=== PATIENT | male | born 1975 | race Caucasian/White ===

== ENCOUNTER 2020-04-03 07:32 | Emergency (ER) | payer OTHER ==
[~2020-04-03] VITALS: Ht 172.7 cm; Wt 127.0 kg
[~2020-04-03 07:32] MED LIST: ALBUTEROL SULF8.5 GM INH; DIPHENHYDRAMINE25 MG PO; DULERA 100 MCG/13 GM INH; MONTELUKAST SOD10 MG PO; NASACORT10.8 ML NAS; NORCO 5-325 TA1 EACH PO; ZOFRAN ODT4 MG PO
[2020-04-03] MEDS ORDERED: PRILOSEC OTC20 MG PO (08:06)
== END 2020-04-05 13:45 | disposition home or self-care (01) ==
LOC: ED 07:32
DX: S62.336A Displaced fracture of neck of fifth metacarpal bone, right hand, initial encounter for closed fracture (principal); F10.129 Alcohol abuse with intoxication, unspecified; Y90.8 Blood alcohol level of 240 mg/100 ml or more; R45.851 Suicidal ideations; Z20.822 Contact with and (suspected) exposure to COVID-19; W22.8XXA Striking against or struck by other objects, initial encounter; K21.9 Gastro-esophageal reflux disease without esophagitis; J44.9 Chronic obstructive pulmonary disease, unspecified; F17.200 Nicotine dependence, unspecified, uncomplicated; Z79.899 Other long term (current) drug therapy
CPT/HCPCS: 73130; 80053; 80176; 81001; 84443; 85025; 99285-25; C9803; U0003

== ENCOUNTER 2021-06-08 20:13 | Emergency (ER) | payer OTHER ==
[~2021-06-08] VITALS: Ht 172.7 cm; Wt 127.0 kg
[~2021-06-08 20:13] MED LIST changes: +PRILOSEC OTC20 MG PO
--- OUTSIDE RECORDS SUMMARY | 2021-06-08 20:16 | XMS ---
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 EMadiha VISIT COUNT (12 MO.) 1 [facility] [place] TOTAL 1 NOTE: Visits indicate total known visits. ED/UCC VISIT TRACKING (12 MO.) 06/08/2021 20:14 [facility] [place] TYPE: Emergency COMPLAINT: - RT RIB INJURY INPATIENT VISIT TRACKING (12 MO.) No inpatient visits to display in this time frame [email or web address]
[2021-06-09] MEDS ORDERED: HYDROCODON-ACE1 EA10 PO (01:37)
== END 2021-06-09 01:50 | disposition home or self-care (01) ==
LOC: ED 20:13
DX: S20.211A Contusion of right front wall of thorax, initial encounter (principal); K21.9 Gastro-esophageal reflux disease without esophagitis; J44.9 Chronic obstructive pulmonary disease, unspecified; F17.200 Nicotine dependence, unspecified, uncomplicated; Z88.5 Allergy status to narcotic agent; Z79.899 Other long term (current) drug therapy; W01.0XXA Fall on same level from slipping, tripping and stumbling without subsequent striking against object, initial encounter
CPT/HCPCS: 71046; 99283-25

== ENCOUNTER 2021-12-25 14:01 | Emergency (ER) | payer OTHER ==
[~2021-12-25] VITALS: Ht 172.7 cm; Wt 123.0 kg
[~2021-12-25 14:01] MED LIST changes: +HYDROCODON-ACE1 EA10 PO
--- OUTSIDE RECORDS SUMMARY | 2021-12-25 14:02 | XMS ---
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 EMadiha VISIT COUNT (12 MO.) 3 [facility] [place] TOTAL 3 NOTE: Visits indicate total known visits. ED/UCC VISIT TRACKING (12 MO.) 12/25/2021 14:01 [facility] TYPE: Emergency COMPLAINT: - RIB PAIN,SKIN PROBLEM 11/04/2021 16:46 [facility] TYPE: Emergency COMPLAINT: - MEDICAL CLEARANCE DIAGNOSES: - Chronic obstructive pulmonary disease, unspecified - Other intermediate designer (current) drug therapy - Poisoning by electrolytic, caloric and water-balance agents, intentional self-harm, initial encounter - Gastro-esophageal reflux disease without esophagitis - Contact with and (suspected) exposure to COVID-19 - Allergy status to narcotic agent 06/08/2021 20:14 [facility] TYPE: Emergency COMPLAINT: - RT RIB INJURY DIAGNOSES: - Chronic obstructive pulmonary disease, unspecified - Other jail (current) drug therapy - Pleurodynia - Gastro-esophageal reflux disease without esophagitis - Allergy status to narcotic agent - Nicotine dependence, unspecified, uncomplicated - Contusion of right front wall of thorax, initial encounter - Fall on same level from slipping, tripping and stumbling without subsequent striking against object, initial encounter INPATIENT VISIT TRACKING (12 MO.) No inpatient visits to display in this time frame [email or web address]
[2021-12-25] MEDS ORDERED: FLUTICASONE-SA1 EAC3 INH (14:19)
--- NOTE | 2021-12-26 13:11 | EKG ---
[facility] [address] [facility] [place] [address] Signed Sinus tachycardia Left axis deviation Inferior infarct , age undetermined Abnormal ECG When compared with ECG of 04-NOV-2021 16:57, No significant change was found Confirmed by ROSA ELENA JACKSON MD ([id number]) on 12/26/2021 1:11:09 PM Electronically Signed By: ROSA ELENA JACKSON MD 12/26/21 1311 PATIENT NAME: HAN MIX Electrocardiogram DATE OF : 73 PHYSICIAN: ROSA ELENA JACKSON MD REPORT #: [id number] REPORT IS CONFIDENTIAL AND NOT TO BE RELEASED WITHOUT AUTHORIZATION
== END 2021-12-25 17:25 | disposition home or self-care (01) ==
LOC: ED 14:01
DX: R61 Generalized hyperhidrosis (principal); R23.2 Flushing; K21.9 Gastro-esophageal reflux disease without esophagitis; J44.9 Chronic obstructive pulmonary disease, unspecified; F43.10 Post-traumatic stress disorder, unspecified; F17.200 Nicotine dependence, unspecified, uncomplicated; Z88.5 Allergy status to narcotic agent; Z79.899 Other long term (current) drug therapy
CPT/HCPCS: 36415; 71045; 80053; 81001; 83690; 83735; 85025; 93005; 93010; 99284-25; J7030

== ENCOUNTER 2022-11-15 15:50 | Emergency (ER) | payer OTHER ==
[~2022-11-15] VITALS: Ht 172.7 cm; Wt 126.8 kg
--- OUTSIDE RECORDS SUMMARY | ~2022-11-15 | XMS | Continuity of Care Document ---
Demographics + + + | Address | [address] | | | [place] [address] | + + + | Preferred Language | Unknown | + + + | Marital Status | Never | + + + | Voodoo Affiliation | Unknown | + + + | Race | White | + + + | Ethnic Group | Not or | + + + Author + + + | Author | [place] | + + + | Organization | [place] | + + + | Address | [address] | | | [place] [address] | + + + | Phone | | + + + Care Team Providers + + + + | Care Drum Operator Name | Role | Phone | + + + + Unavailable | Unavailable | + + + + Unavailable | Unavailable | + + + + Unavailable | Unavailable | + + + + Unavailable | Unavailable | + + + + Allergies and Intolerances + + + + + + | date | description | facility | reaction | severity | + + + + + + | (no date) | Sulfa | [facility] | (no reaction) | (no severity) | | | Antibiotics | [facility] | | | + + + + + + | (no date) | Asthma | [facility] | (no reaction) | (no severity) | | | | | | | | | | Hospital | | | + + + + + + | (no date) | Asthma / | [facility] | (no reaction) | (no severity) | | | Allergic asthma | [facility] | | | | | | | | | + + + + + + | (no date) | Asthma | [facility] | (no reaction) | (no severity) | | | | [facility] | | | + + + + + + | (no date) | Sulfa | [facility] | (no reaction) | (no severity) | | | Antibiotics | [facility] | | | + + + + + + Encounters No information. Functional Status No information. Immunizations No information. Medications + + + + | date | description | facility | + + + + | 2021-09-18 00:00 | DIPHENHYDRAMINE HCL | [facility] | + + + + | 2021-11-04 00:00 | DIPHENHYDRAMINE HCL | [facility] | + + + + | 2021-12-25 00:00 | DIPHENHYDRAMINE HCL | [facility] | + + + + | 2022-08-16 00:00 | DIPHENHYDRAMINE HCL | [facility] | + + + + | 2022-08-17 00:00 | DIPHENHYDRAMINE HCL | [facility] | + + + + | 2021-07-12 00:00 | divalproex sodium 125 MG | [facility] | | | Delayed Release Oral Tablet | | | | | | + + + + | 2021-09-18 00:00 | MOMETASONE/FORMOTEROL | [facility] | + + + + | 2021-11-04 00:00 | MOMETASONE/FORMOTEROL | [facility] | + + + + | 2021-12-25 00:00 | MOMETASONE/FORMOTEROL | [facility] | + + + + | 2022-08-16 00:00 | MOMETASONE/FORMOTEROL | [facility] | + + + + | 2022-08-17 00:00 | MOMETASONE/FORMOTEROL | [facility] | + + + + | 2021-07-12 00:00 | Fluticasone Furoate 27.5 | [facility] | | | MCG/SPRAY Nasal Suspension | | + + + + | 2021-12-25 00:00 | Fluticasone | [facility] | | | Propion/Salmeterol | | + + + + | 2022-08-16 00:00 | Fluticasone | [facility] | | | Propion/Salmeterol | | + + + + | 2022-08-17 00:00 | Fluticasone | [facility] | | | Propion/Salmeterol | | + + + + | 2021-09-18 00:00 | ALBUTEROL SULFATE | [facility] | + + + + | 2021-11-04 00:00 | ALBUTEROL SULFATE | [facility] | + + + + | 2021-12-25 00:00 | ALBUTEROL SULFATE | [facility] | + + + + | 2022-08-16 00:00 | ALBUTEROL SULFATE | [facility] | + + + + | 2022-08-17 00:00 | ALBUTEROL SULFATE | [facility] | + + + + | 2021-07-12 00:00 | montelukast 10 MG Oral | [facility] | | | Tablet [Singulair] | | + + + + | 2021-07-12 00:00 | Propranolol HCl 20 MG Oral | [facility] | | | Tablet | | + + + + | 2021-08-11 00:00 | Propranolol HCl 20 MG Oral | [facility] | | | Tablet | | + + + + | 2021-07-12 00:00 | fluticasone furoate 0.0275 | [facility] | | | MG/ACTUAT Metered Dose | | | | Nasal [place] | | + + + + | 2021-09-18 00:00 | TRIAMCINOLONE ACETONIDE | [facility] | + + + + | 2021-11-04 00:00 | TRIAMCINOLONE ACETONIDE | [facility] | + + + + | 2021-12-25 00:00 | TRIAMCINOLONE ACETONIDE | [facility] | + + + + | 2022-08-16 00:00 | TRIAMCINOLONE ACETONIDE | [facility] | + + + + | 2022-08-17 00:00 | TRIAMCINOLONE ACETONIDE | [facility] | + + + + | 2022-06-13 00:00 | alprazolam 1 MG Oral | [facility] | | | Tablet | | + + + + | 2021-09-18 00:00 | MONTELUKAST SODIUM | [facility] | + + + + | 2021-11-04 00:00 | MONTELUKAST SODIUM | [facility] | + + + + | 2021-12-25 00:00 | MONTELUKAST SODIUM | [facility] | + + + + | 2022-08-16 00:00 | MONTELUKAST SODIUM | [facility] | + + + + | 2022-08-17 00:00 | MONTELUKAST SODIUM | [facility] | + + + + | 2021-07-12 00:00 | Advair Diskus 100-50 | [facility] | | | MCG/ACT Inhalation Aerosol | | | | Powder Breath Activated | | + + + + | 2021-07-12 00:00 | busPIRone HCl 5 MG Oral | [facility] | | | Tablet | | + + + + | 2021-09-18 00:00 | OMEPRAZOLE MAGNESIUM | [facility] | + + + + | 2021-11-04 00:00 | OMEPRAZOLE MAGNESIUM | [facility] | + + + + | 2021-12-25 00:00 | OMEPRAZOLE MAGNESIUM | [facility] | + + + + | 2022-08-16 00:00 | OMEPRAZOLE MAGNESIUM | [facility] | + + + + | 2022-08-17 00:00 | OMEPRAZOLE MAGNESIUM | [facility] | + + + + | 2021-07-12 00:00 | Singulair 10 MG Oral | [facility] | | | Tablet | | + + + + | 2021-07-12 00:00 | Divalproex Sodium 125 MG | [facility] | | | Oral Tablet Delayed Release | | | | | | + + + + | 2022-08-16 00:00 | | [facility] | | | SULFAMETHOXAZOLE/TRIMETHOPR | | | | IM DS | | + + + + | 2022-08-16 00:00 | | [facility] | | | SULFAMETHOXAZOLE/TRIMETHOPR | | | | IM DS | | + + + + | 2021-07-12 00:00 | propranolol hydrochloride | [facility] | | | 20 MG Oral Tablet | | + + + + | 2021-08-11 00:00 | propranolol hydrochloride | [facility] | | | 20 MG Oral Tablet | | + + + + | 2021-06-09 00:00 | HYDROCODONE | [facility] | | | BIT/ACETAMINOPHEN | | + + + + | 2021-06-09 00:00 | HYDROCODONE | [facility] | | | BIT/ACETAMINOPHEN | | + + + + | 2014-05-30 00:00 | HYDROCODONE | [facility] | | | BIT/ACETAMINOPHEN | | + + + + | 2014-05-30 00:00 | HYDROCODONE | [facility] | | | BIT/ACETAMINOPHEN | | + + + + | 2014-05-30 00:00 | HYDROCODONE | [facility] | | | BIT/ACETAMINOPHEN | | + + + + | 2022-08-17 00:00 | HYDROCODONE | [facility] | | | BIT/ACETAMINOPHEN | | + + + + | 2021-07-12 00:00 | [facility]pirone hydrochloride 5 | [facility] | | | MG Oral Tablet | | + + + + | 2014-05-30 00:00 | ONDANSETRON | [facility] | + + + + | 2014-05-30 00:00 | ONDANSETRON | [facility] | + + + + | 2014-05-30 00:00 | ONDANSETRON | [facility] | + + + + | 2021-07-12 00:00 | 60 ACTUAT fluticasone | [facility] | | | propionate 0.1 MG/ACTUAT / | | | | salmeterol 0.05 MG/ACTUAT | | | | Dry Powder Inhaler [Advair] | | + + + + | 2022-06-13 00:00 | ALPRAZolam 1 MG Oral | [facility] | | | Tablet | | + + + + | 2021-07-12 00:00 | Omeprazole Oral Tablet | [facility] | | | | | + + + + | 2021-07-12 00:00 | Albuterol 90 mcg | [facility] | | | Inhalation Inhaler | | + + + + Problems + + + + | date | description | facility | + + + + | 2014-05-30 00:00 | Dehydration | [facility] | + + + + | 2014-05-30 00:00 | Dehydration | [facility] | + + + + | 2014-05-30 00:00 | Dehydration | [facility] | + + + + | 2014-05-30 00:00 | Vomiting and diarrhea | [facility] | + + + + | 2014-05-30 00:00 | Vomiting and diarrhea | [facility] | + + + + | 2014-05-30 00:00 | Vomiting and diarrhea | [facility] | + + + + | 2014-05-30 00:00 | Weakness | [facility] | + + + + | 2014-05-30 00:00 | Weakness | [facility] | + + + + | 2014-05-30 00:00 | Weakness | [facility] | + + + + | 2016-05-28 00:00 | Patient left without being | [facility] | | | seen | | + + + + | 2016-05-28 00:00 | Patient left without being | [facility] | | | seen | | + + + + | 2016-05-28 00:00 | Patient left without being | [facility] | | | seen | | + + + + | 2020-04-03 00:00 | Alcoholic intoxication | [facility] | + + + + | 2020-04-03 00:00 | Alcoholic intoxication | [facility] | + + + + | 2020-04-03 00:00 | Alcoholic intoxication | [facility] | + + + + | 2020-04-03 00:00 | Suicidal ideation | [facility] | + + + + | 2020-04-03 00:00 | Suicidal ideation | [facility] | + + + + | 2020-04-03 00:00 | Suicidal ideation | [facility] | + + + + | 2021-06-09 00:00 | Contusion of right chest | [facility] | | | wall | | + + + + | 2021-06-09 00:00 | Contusion of right chest | [facility] | | | wall | | + + + + | 2021-06-09 00:00 | Contusion of right chest | [facility] | | | wall | | + + + + | 2021-11-04 00:00 | Intentional overdose | [facility] | + + + + | 2021-11-04 00:00 | Intentional overdose | [facility] | + + + + | 2021-12-25 00:00 | Flushing | [facility] | + + + + | 2021-12-25 00:00 | Flushing | [facility] | + + + + | 2021-12-25 00:00 | Excessive sweating | [facility] | + + + + | 2021-12-25 00:00 | Excessive sweating | [facility] | + + + + | 2022-08-16 00:00 | Abscess of left thigh | [facility] | + + + + | 2022-08-16 00:00 | Abscess of left thigh | [facility] | + + + + | 2022-08-16 14:43 | NICOTINE DEPENDENCE, | [facility] | | | CIGARETTES, UNCOMPLICATED | | + + + + | 2022-08-16 14:43 | CHRONIC OBSTRUCTIVE | [facility] | | | PULMONARY DISEASE, | | | | UNSPECIFIED | | + + + + | 2022-08-16 14:43 | GASTRO-ESOPHAGEAL REFLUX | [facility] | | | DISEASE WITHOUT ESOPHAGIT | | + + + + | 2022-08-16 14:43 | CUTANEOUS ABSCESS OF LEFT | [facility] | | | LOWER LIMB | | + + + + | 2022-08-16 14:43 | OTHER ANTISQUEAK APPLIER (CURRENT) | [facility] | | | DRUG THERAPY | | + + + + | 2022-08-17 00:00 | Abscess of thigh | [facility] | + + + + | 2022-08-17 13:08 | NICOTINE DEPENDENCE, | [facility] | | | UNSPECIFIED, UNCOMPLICATED | | + + + + | 2022-08-17 13:08 | CHRONIC OBSTRUCTIVE | [facility] | | | PULMONARY DISEASE, | | | | UNSPECIFIED | | + + + + | 2022-08-17 13:08 | GASTRO-ESOPHAGEAL REFLUX | [facility] | | | DISEASE WITHOUT ESOPHAGIT | | + + + + | 2022-08-17 13:08 | CUTANEOUS ABSCESS OF LEFT | [facility] | | | LOWER LIMB | | + + + + | 2022-08-17 13:08 | CUTANEOUS ABSCESS, | [facility] | | | UNSPECIFIED | | + + + + | 2022-08-17 13:08 | OTHER ALF (CURRENT) | [facility] | | | DRUG THERAPY | | + + + + | 2022-08-17 13:08 | ALLERGY STATUS TO NARCOTIC | [facility] | | | AGENT STATUS | | + + + + Procedures + + + + | date | description | facility | + + + + | 2021-07-12 00:00 | Controlling BP; Most | [facility] | | | recent Systolic BP | | | | 130-139mm Hg | | + + + + | 2021-07-12 00:00 | Controlling BP; Most | [facility] | | | recent Diastolic BP btwn | | | | 80-89 mm Hg | | + + + + | 2021-07-12 00:00 | Patient-Focused Health | [facility] | | | Risk Assessment; Admin and | | | | Interp | | + + + + | 2021-07-12 00:00 | Annual Depression | [facility] | | | Screening; 15 Minutes | | + + + + Results/Labs +--------+--------+ +---------+--------+---------+ | test | date | facility | value | unit | notes | +--------+--------+ +---------+--------+---------+ + + | Result panel 1 | + + + + + + + + + | No Results | (no date) | [facility] | No Results | (missing) | (missing) | | | | [facility] | | | | | | | [facility] | | | | + + + + + + + + + | Result panel 2 | + + + + + + + + + | | 2021-05-25 | [facility] | NEGATIVE | (missing) | (missing) | | (unavailable | 08:10 | | | | | | ) | | Hospital | | | | + + + + + + + + + | Result panel 3 | + + + + + + + + + | | 2021-11-04 | [facility] | YELLOW | (missing) | (missing) | | (unavailable | 16:56 | | | | | | ) | | Hospital | | | | + + + + + + + + + | Result panel 4 | + + + + + +---------+ + + | | 2021-11-04 | [facility] | CLEAR | (missing) | (missing) | | (unavailable | 16:56 | | | | | | ) | | Hospital | | | | + + + +---------+ + + + + | Result panel 5 | + + + + + + + + + | | 2021-11-04 | [facility] | NEGATIVE | (missing) | (missing) | | (unavailable | 16:56 | | | | | | ) | | Hospital | | | | + + + + + + + + + | Result panel 6 | + + + + + + + + + | | 2021-11-04 | [facility] | NEGATIVE | (missing) | (missing) | | (unavailable | 16:56 | | | | | | ) | | Hospital | | | | + + + + + + + + + | Result panel 7 | + + + + + + + + + | | 2021-11-04 | [facility] | NEGATIVE | (missing) | (missing) | | (unavailable | 16:56 | | | | | | ) | | Hospital | | | | + + + + + + + + + | Result panel 8 | + + + + + +---------+ + + | | 2021-11-04 | [facility] | 1.025 | (missing) | (missing) | | (unavailable | 16:56 | | | | | | ) | | Hospital | | | | + + + +---------+ + + + + | Result panel 9 | + + + + + + + + + | | 2021-11-04 | [facility] | TRACE-I | (missing) | (missing) | | (unavailable | 16:56 | | | | | | ) | | Hospital | | | | + + + + + + + + + | Result panel 10 | + + + + + +-------+ + + | | 2021-11-04 | [facility] | 6.0 | (missing) | (missing) | | (unavailable | 16:56 | | | | | | ) | | Hospital | | | | + + + +-------+ + + + + | Result panel 11 | + + + + + + + + + | | 2021-11-04 | [facility] | NEGATIVE | (missing) | (missing) | | (unavailable | 16:56 | | | | | | ) | | Hospital | | | | + + + + + + + + + | Result panel 12 | + + + + + + + + + | | 2021-11-04 | [facility] | NORMAL | (missing) | (missing) | | (unavailable | 16:56 | | | | | | ) | | Hospital | | | | + + + + + + + + + | Result panel 13 | + + + + + + + + + | | 2021-11-04 | [facility] | NEGATIVE | (missing) | (missing) | | (unavailable | 16:56 | | | | | | ) | | Hospital | | | | + + + + + + + + + | Result panel 14 | + + + + + + + + + | | 2021-11-04 | [facility] | NEGATIVE | (missing) | (missing) | | (unavailable | 16:56 | | | | | | ) | | Hospital | | | | + + + + + + + + + | Result panel 15 | + + + + + +-------+ + + | | 2021-11-04 | [facility] | 2-3 | (missing) | (missing) | | (unavailable | 16:56 | | | | | | ) | | Hospital | | | | + + + +-------+ + + + + | Result panel 16 | + + + + + +-------+ + + | | 2021-11-04 | [facility] | 0-1 | (missing) | (missing) | | (unavailable | 16:56 | | | | | | ) | | Hospital | | | | + + + +-------+ + + + + | Result panel 17 | + + + + + +-----+ + + | | 2021-11-04 | [facility] | 0 | (missing) | (missing) | | (unavailable | 16:56 | | | | | | ) | | Hospital | | | | + + + +-----+ + + + + | Result panel 18 | + + + + + + + + + | | 2021-11-04 | [facility] | NONE SEEN | (missing) | (missing) | | (unavailable | 16:56 | | | | | | ) | | Hospital | | | | + + + + + + + + + | Result panel 19 | + + + + + + + + + | | 2021-11-04 | [facility] | NONE SEEN | (missing) | (missing) | | (unavailable | 16:56 | | | | | | ) | | Hospital | | | | + + + + + + + + + | Result panel 20 | + + + + + + + + + | | 2021-11-04 | [facility] | NONE SEEN | (missing) | (missing) | | (unavailable | 16:56 | | | | | | ) | | Hospital | | | | + + + + + + + + + | Result panel 21 | + + + + + + + + + | | 2021-11-04 | [facility] | CLEAN CATCH | (missing) | (missing) | | (unavailable | 16:56 | | | | | | ) | | Hospital | | | | + + + + + + + + + | Result panel 22 | + + + + + + + + + | | 2021-11-04 | [facility] | POSITIVE | (missing) | (missing) | | (unavailable | 16:56 | | | | | | ) | | Hospital | | | | + + + + + + + + + | Result panel 23 | + + + + + + + + + | | 2021-11-04 | [facility] | NEGATIVE | (missing) | (missing) | | (unavailable | 16:56 | | | | | | ) | | Hospital | | | | + + + + + + + + + | Result panel 24 | + + + + + + + + + | | 2021-11-04 | [facility] | NEGATIVE | (missing) | (missing) | | (unavailable | 16:56 | | | | | | ) | | Hospital | | | | + + + + + + + + + | Result panel 25 | + + + + + + + + + | | 2021-11-04 | [facility] | NEGATIVE | (missing) | (missing) | | (unavailable | 16:56 | | | | | | ) | | Hospital | | | | + + + + + + + + + | Result panel 26 | + + + + + + + + + | | 2021-11-04 | [facility] | NEGATIVE | (missing) | (missing) | | (unavailable | 16:56 | | | | | | ) | | Hospital | | | | + + + + + + + + + | Result panel 27 | + + + + + + + + + | | 2021-11-04 | [facility] | NEGATIVE | (missing) | (missing) | | (unavailable | 16:56 | | | | | | ) | | Hospital | | | | + + + + + + + + + | Result panel 28 | + + + + + + + + + | | 2021-11-04 | [facility] | NEGATIVE | (missing) | (missing) | | (unavailable | 16:56 | | | | | | ) | | Hospital | | | | + + + + + + + + + | Result panel 29 | + + + + + + + + + | | 2021-11-04 | [facility] | NEGATIVE | (missing) | (missing) | | (unavailable | 16:56 | | | | | | ) | | Hospital | | | | + + + + + + + + + | Result panel 30 | + + + + + + + + + | | 2021-11-04 | [facility] | NEGATIVE | (missing) | (missing) | | (unavailable | 16:56 | | | | | | ) | | Hospital | | | | + + + + + + + + + | Result panel 31 | + + + + + + + + + | | 2021-11-04 | [facility] | NEGATIVE | (missing) | (missing) | | (unavailable | 16:56 | | | | | | ) | | Hospital | | | | + + + + + + + + + | Result panel 32 | + + + + + + + + + | | 2021-11-04 | [facility] | NEGATIVE | (missing) | (missing) | | (unavailable | 16:56 | | | | | | ) | | Hospital | | | | + + + + + + + + + | Result panel 33 | + + + + + + + + + | | 2021-11-04 | [facility] | NEGATIVE | (missing) | (missing) | | (unavailable | 16:56 | | | | | | ) | | Hospital | | | | + + + + + + + + + | Result panel 34 | + + + + + + + + + | | 2021-11-04 | [facility] | NEGATIVE | (missing) | (missing) | | (unavailable | 16:56 | | | | | | ) | | Hospital | | | | + + + + + + + + + | Result panel 35 | + + + + + +--------+ + + | | 2021-11-04 | [facility] | 15.0 | (missing) | (missing) | | (unavailable | 17:05 | | | | | | ) | | Hospital | | | | + + + +--------+ + + + + | Result panel 36 | + + + + + +-------+ + + | | 2021-11-04 | [facility] | 308 | (missing) | (missing) | | (unavailable | 17:05 | | | | | | ) | | Hospital | | | | + + + +-------+ + + + + | Result panel 37 | + + + + + +--------+ + + | | 2021-11-04 | [facility] | 62.4 | (missing) | (missing) | | (unavailable | 17:05 | | | | | | ) | | Hospital | | | | + + + +--------+ + + + + | Result panel 38 | + + + + + +--------+ + + | | 2021-11-04 | [facility] | 27.4 | (missing) | (missing) | | (unavailable | 17:05 | | | | | | ) | | Hospital | | | | + + + +--------+ + + + + | Result panel 39 | + + + + + +-------+ + + | | 2021-11-04 | [facility] | 8.0 | (missing) | (missing) | | (unavailable | 17:05 | | | | | | ) | | Hospital | | | | + + + +-------+ + + + + | Result panel 40 | + + + + + +-------+ + + | | 2021-11-04 | [facility] | 1.3 | (missing) | (missing) | | (unavailable | 17:05 | | | | | | ) | | Hospital | | | | + + + +-------+ + + + + | Result panel 41 | + + + + + +-------+ + + | | 2021-11-04 | [facility] | 0.9 | (missing) | (missing) | | (unavailable | 17:05 | | | | | | ) | | Hospital | | | | + + + +-------+ + + + + | Result panel 42 | + + + + + +--------+ + + | | 2021-11-04 | [facility] | 12.5 | (missing) | (missing) | | (unavailable | 17:05 | | | | | | ) | | Hospital | | | | + + + +--------+ + + + + | Result panel 43 | + + + + + +------+---------+ + | | 2021-11-04 | [facility] | 94 | mg/dL | (missing) | | (unavailable | 17:05 | | | | | | ) | | Hospital | | | | + + + +------+---------+ + + + | Result panel 44 | + + + + + +------+---------+ + | | 2021-11-04 | [facility] | 13 | mg/dL | (missing) | | (unavailable | 17:05 | | | | | | ) | | Hospital | | | | + + + +------+---------+ + + + | Result panel 45 | + + + + + +--------+---------+ + | | 2021-11-04 | [facility] | 1.03 | mg/dL | (missing) | | (unavailable | 17:05 | | | | | | ) | | Hospital | | | | + + + +--------+---------+ + + + | Result panel 46 | + + + + + +------+ + + | | 2021-11-04 | [facility] | 90 | (missing) | (missing) | | (unavailable | 17:05 | | | | | | ) | | Hospital | | | | + + + +------+ + + + + | Result panel 47 | + + + + + +--------+ + + | | 2021-11-04 | [facility] | 5.38 | (missing) | (missing) | | (unavailable | 17:05 | | | | | | ) | | Hospital | | | | + + + +--------+ + + + + | Result panel 48 | + + + + + +---------+ + + | | 2021-11-04 | [facility] | 12.62 | (missing) | (missing) | | (unavailable | 17:05 | | | | | | ) | | Hospital | | | | + + + +---------+ + + + + | Result panel 49 | + + + + + +-------+ + + | | 2021-11-04 | [facility] | 139 | (missing) | (missing) | | (unavailable | 17:05 | | | | | | ) | | Hospital | | | | + + + +-------+ + + + + | Result panel 50 | + + + + + +-------+ + + | | 2021-11-04 | [facility] | 3.9 | (missing) | (missing) | | (unavailable | 17:05 | | | | | | ) | | Hospital | | | | + + + +-------+ + + + + | Result panel 51 | + + + + + +-------+ + + | | 2021-11-04 | [facility] | 104 | (missing) | (missing) | | (unavailable | 17:05 | | | | | | ) | | Hospital | | | | + + + +-------+ + + + + | Result panel 52 | + + + + + +------+ + + | | 2021-11-04 | [facility] | 25 | (missing) | (missing) | | (unavailable | 17:05 | | | | | | ) | | Hospital | | | | + + + +------+ + + + + | Result panel 53 | + + + + + +--------+ + + | | 2021-11-04 | [facility] | 13.9 | (missing) | (missing) | | (unavailable | 17:05 | | | | | | ) | | Hospital | | | | + + + +--------+ + + + + | Result panel 54 | + + + + + +-------+---------+ + | | 2021-11-04 | [facility] | 8.4 | mg/dL | (missing) | | (unavailable | 17:05 | | | | | | ) | | Hospital | | | | + + + +-------+---------+ + + + | Result panel 55 | + + + + + +-------+ + + | | 2021-11-04 | [facility] | 7.8 | (missing) | (missing) | | (unavailable | 17:05 | | | | | | ) | | Hospital | | | | + + + +-------+ + + + + | Result panel 56 | + + + + + +-------+ + + | | 2021-11-04 | [facility] | 3.9 | (missing) | (missing) | | (unavailable | 17:05 | | | | | | ) | | Hospital | | | | + + + +-------+ + + + + | Result panel 57 | + + + + + +-------+ + + | | 2021-11-04 | [facility] | 3.9 | (missing) | (missing) | | (unavailable | 17:05 | | | | | | ) | | Hospital | | | | + + + +-------+ + + + + | Result panel 58 | + + + + + +--------+ + + | | 2021-11-04 | [facility] | 15.2 | (missing) | (missing) | | (unavailable | 17:05 | | | | | | ) | | Hospital | | | | + + + +--------+ + + + + | Result panel 59 | + + + + + +--------+ + + | | 2021-11-04 | [facility] | 1.00 | (missing) | (missing) | | (unavailable | 17:05 | | | | | | ) | | Hospital | | | | + + + +--------+ + + + + | Result panel 60 | + + + + + +-------+ + + | | 2021-11-04 | [facility] | 0.4 | (missing) | (missing) | | (unavailable | 17:05 | | | | | | ) | | Hospital | | | | + + + +-------+ + + + + | Result panel 61 | + + + + + +------+ + + | | 2021-11-04 | [facility] | 26 | (missing) | (missing) | | (unavailable | 17:05 | | | | | | ) | | Hospital | | | | + + + +------+ + + + + | Result panel 62 | + + + + + +------+ + + | | 2021-11-04 | [facility] | 62 | (missing) | (missing) | | (unavailable | 17:05 | | | | | | ) | | Hospital | | | | + + + +------+ + + + + | Result panel 63 | + + + + + +------+ + + | | 2021-11-04 | [facility] | 95 | (missing) | (missing) | | (unavailable | 17:05 | | | | | | ) | | Hospital | | | | + + + +------+ + + + + | Result panel 64 | + + + + + +---------+ + + | | 2021-11-04 | [facility] | 1.386 | (missing) | (missing) | | (unavailable | 17:05 | | | | | | ) | | Hospital | | | | + + + +---------+ + + + + | Result panel 65 | + + + + + +-----+ + + | | 2021-11-04 | [facility] | 0 | (missing) | (missing) | | (unavailable | 17:05 | | | [facility] | | ) | | [facility] | | | | + + + +-----+ + + + + | Result panel 66 | + + + + + +------+ + + | | 2021-11-04 | [facility] | // | (missing) | (missing) | | (unavailable | 17:05 | | [facility] | ) | | Hospital | | | | + + + +------+ + + + + | Result panel 67 | + + + + + +-------+---------+ + | | 2021-11-04 | [facility] | 2.7 | mg/dL | (missing) | | (unavailable | 17:05 | [facility] | ) | [facility] Hospital | | | | + + + +-------+---------+ + + + | Result panel 68 | + + + + + +------+ + + | | 2021-11-04 | [facility] | // | (missing) | (missing) | | (unavailable | 17:05 | | [facility] ) | | Hospital | | | | + + + +------+ + + + + | Result panel 69 | + + + + + +--------+ + + | | 2021-11-04 | [facility] | 46.5 | (missing) | (missing) | | (unavailable | 17:05 [facility] | ) | [facility] Hospital | | | | + + + +--------+ + + + + | Result panel 70 | + + + + + +------+ + + | | 2021-11-04 | [facility] | <3 | (missing) | (missing) | | (unavailable | 17:05 | [facility] | ) | | Hospital | | | | + + + +------+ + + + + | Result panel 71 | + + + + + +--------+ + + | | 2021-11-04 | [facility] | 86.3 | (missing) | (missing) | | (unavailable | 17:05 | [facility] | | ) | | Hospital | | | | + + + +--------+ + + + + | Result panel 72 | + + + + + +--------+ + + | | 2021-11-04 | [facility] | 28.3 | (missing) | (missing) | | (unavailable | 17:05 | | [facility] | | | ) | | Hospital | | | | + + + +--------+ + + + + | Result panel 73 | + + + + + +--------+ + + | | 2021-11-04 | [facility] | 32.7 | (missing) | (missing) | | (unavailable | 17:05 | [facility] | ) | | Hospital | | | | + + + +--------+ + + + + | Result panel 74 | + + + + + + + + + | | 2021-11-04 | [facility] | NEGATIVE | (missing) | (missing) | | (unavailable | 17:08 | | [facility] | | ) | | Hospital | | | | + + + + + + + + + | Result panel 75 | + + + + + + + + + | | 2021-11-04 | [facility] | NEGATIVE | (missing) | (missing) | | (unavailable | 17:08 | | | | | | ) | | Hospital | | | | + + + + + + + + + | Result panel 76 | + + + + + + + + + | | 2021-11-04 | [facility] | NEGATIVE | (missing) | (missing) | | (unavailable | 17:08 | | | | | | ) | | Hospital | | | | + + + + + + + + + | Result panel 77 | + + + + + + + + + | | 2021-11-04 | [facility] | NEGATIVE | (missing) | (missing) | | (unavailable | 17:08 | | | | | | ) | | Hospital | | | | + + + + + + + + + | Result panel 78 | + + + + + +------+ + + | | 2021-12-25 | [facility] | 30 | (missing) | (missing) | | (unavailable | 05:03 | | | | | | ) | | Hospital | | | | + + + +------+ + + + + | Result panel 79 | + + + + + +-------+ + + | | 2021-12-25 | [facility] | 1.0 | (missing) | (missing) | | (unavailable | 05:03 | | | | | | ) | | Hospital | | | | + + + +-------+ + + + + | Result panel 80 | + + + + + + + + + | | 2021-12-25 | [facility] | NEGATIVE | (missing) | (missing) | | (unavailable | 05:03 | | | | | | ) | | Hospital | | | | + + + + + + + + + | Result panel 81 | + + + + + + + + + | | 2021-12-25 | [facility] | NEGATIVE | (missing) | (missing) | | (unavailable | 05:03 | | | | | | ) | | Hospital | | | | + + + + + + + + + | Result panel 82 | + + + + + +-------+ + + | | 2021-12-25 | [facility] | 2-3 | (missing) | (missing) | | (unavailable | 05:03 | | | | | | ) | | Hospital | | | | + + + +-------+ + + + + | Result panel 83 | + + + + + +-------+ + + | | 2021-12-25 | [facility] | 4-6 | (missing) | (missing) | | (unavailable | 05:03 | | | | | | ) | | Hospital | | | | + + + +-------+ + + + + | Result panel 84 | + + + + + +------+ + + | | 2021-12-25 | [facility] | NS | (missing) | (missing) | | (unavailable | 05:03 | | | | | | ) | | Hospital | | | | + + + +------+ + + + + | Result panel 85 | + + + + + + + + + | | 2021-12-25 | [facility] | NONE SEEN | (missing) | (missing) | | (unavailable | 05:03 | | | | | | ) | | Hospital | | | | + + + + + + + + + | Result panel 86 | + + + + + +--------+ + + | | 2021-12-25 | [facility] | RARE | (missing) | (missing) | | (unavailable | 05:03 | | | | | | ) | | Hospital | | | | + + + +--------+ + + + + | Result panel 87 | + + + + + + + + + | | 2021-12-25 | [facility] | NONE SEEN | (missing) | (missing) | | (unavailable | 05:03 | | | | | | ) | | Hospital | | | | + + + + + + + + + | Result panel 88 | + + + + + + + + + | | 2021-12-25 | [facility] | CLEAN CATCH | (missing) | (missing) | | (unavailable | 05:03 | | | | | | ) | | Hospital | | | | + + + + + + + + + | Result panel 89 | + + + + + + + + + | | 2021-12-25 | [facility] | YELLOW | (missing) | (missing) | | (unavailable | 05:03 | | | | | | ) | | Hospital | | | | + + + + + + + + + | Result panel 90 | + + + + + +---------+ + + | | 2021-12-25 | [facility] | CLEAR | (missing) | (missing) | | (unavailable | 05:03 | | | | | | ) | | Hospital | | | | + + + +---------+ + + + + | Result panel 91 | + + + + + + + + + | | 2021-12-25 | [facility] | NEGATIVE | (missing) | (missing) | | (unavailable | 05:03 | | | | | | ) | | Hospital | | | | + + + + + + + + + | Result panel 92 | + + + + + + + + + | | 2021-12-25 | [facility] | POSITIVE | (missing) | (missing) | | (unavailable | 05:03 | | | | | | ) | | Hospital | | | | + + + + + + + + + | Result panel 93 | + + + + + +--------+ + + | | 2021-12-25 | [facility] | >=80 | (missing) | (missing) | | (unavailable | 05:03 | | | | | | ) | | Hospital | | | | + + + +--------+ + + + + | Result panel 94 | + + + + + + + + + | | 2021-12-25 | [facility] | >=1.030 | (missing) | (missing) | | (unavailable | 05:03 | | | | | | ) | | Hospital | | | | + + + + + + + + + | Result panel 95 | + + + + + + + + + | | 2021-12-25 | [facility] | TRACE-I | (missing) | (missing) | | (unavailable | 05:03 | | | | | | ) | | Hospital | | | | + + + + + + + + + | Result panel 96 | + + + + + +-------+ + + | | 2021-12-25 | [facility] | 6.0 | (missing) | (missing) | | (unavailable | 05:03 | | | | | | ) | | Hospital | | | | + + + +-------+ + + + + | Result panel 97 | + + + + + +-------+---------+ + | | 2021-12-25 | [facility] | 112 | mg/dL | (missing) | | (unavailable | 14:15 | | | | | | ) | | Hospital | | | | + + + +-------+---------+ + + + | Result panel 98 | + + + + + +------+---------+ + | | 2021-12-25 | [facility] | 16 | mg/dL | (missing) | | (unavailable | 14:15 | | | | | | ) | | Hospital | | | | + + + +------+---------+ + + + | Result panel 99 | + + + + + +--------+---------+ + | | 2021-12-25 | [facility] | 1.37 | mg/dL | (missing) | | (unavailable | 14:15 | | | | | | ) | | Hospital | | | | + + + +--------+---------+ + + + | Result panel 100 | + + + + + +------+ + + | | 2021-12-25 | [facility] | 64 | (missing) | (missing) | | (unavailable | 14:15 | | | | | | ) | | Hospital | | | | + + + +------+ + + + + | Result panel 101 | + + + + + +---------+ + + | | 2021-12-25 | [facility] | 11.67 | (missing) | (missing) | | (unavailable | 14:15 | | | | | | ) | | Hospital | | | | + + + +---------+ + + + + | Result panel 102 | + + + + + +-------+ + + | | 2021-12-25 | [facility] | 139 | (missing) | (missing) | | (unavailable | 14:15 | | | | | | ) | | Hospital | | | | + + + +-------+ + + + + | Result panel 103 | + + + + + +-------+ + + | | 2021-12-25 | [facility] | 4.0 | (missing) | (missing) | | (unavailable | 14:15 | | | | | | ) | | Hospital | | | | + + + +-------+ + + + + | Result panel 104 | + + + + + +-------+ + + | | 2021-12-25 | [facility] | 100 | (missing) | (missing) | | (unavailable | 14:15 | | | | | | ) | | Hospital | | | | + + + +-------+ + + + + | Result panel 105 | + + + + + +------+ + + | | 2021-12-25 | [facility] | 25 | (missing) | (missing) | | (unavailable | 14:15 | | | | | | ) | | Hospital | | | | + + + +------+ + + + + | Result panel 106 | + + + + + +--------+ + + | | 2021-12-25 | [facility] | 18.0 | (missing) | (missing) | | (unavailable | 14:15 | | | | | | ) | | Hospital | | | | + + + +--------+ + + + + | Result panel 107 | + + + + + +-------+---------+ + | | 2021-12-25 | [facility] | 8.9 | mg/dL | (missing) | | (unavailable | 14:15 | | | | | | ) | | Hospital | | | | + + + +-------+---------+ + + + | Result panel 108 | + + + + + +-------+---------+ + | | 2021-12-25 | [facility] | 2.0 | mg/dL | (missing) | | (unavailable | 14:15 | | | | | | ) | | Hospital | | | | + + + +-------+---------+ + + + | Result panel 109 | + + + + + +-------+ + + | | 2021-12-25 | [facility] | 8.5 | (missing) | (missing) | | (unavailable | 14:15 | | | | | | ) | | Hospital | | | | + + + +-------+ + + + + | Result panel 110 | + + + + + +-------+ + + | | 2021-12-25 | [facility] | 4.3 | (missing) | (missing) | | (unavailable | 14:15 | | | | | | ) | | Hospital | | | | + + + +-------+ + + + + | Result panel 111 | + + + + + +-------+ + + | | 2021-12-25 | [facility] | 4.2 | (missing) | (missing) | | (unavailable | 14:15 | | | | | | ) | | Hospital | | | | + + + +-------+ + + + + | Result panel 112 | + + + + + +--------+ + + | | 2021-12-25 | [facility] | 1.02 | (missing) | (missing) | | (unavailable | 14:15 | | | | | | ) | | Hospital | | | | + + + +--------+ + + + + | Result panel 113 | + + + + + +-------+ + + | | 2021-12-25 | [facility] | 1.3 | (missing) | (missing) | | (unavailable | 14:15 | | | | | | ) | | Hospital | | | | + + + +-------+ + + + + | Result panel 114 | + + + + + +------+ + + | | 2021-12-25 | [facility] | 46 | (missing) | (missing) | | (unavailable | 14:15 | | | | | | ) | | Hospital | | | | + + + +------+ + + + + | Result panel 115 | + + + + + +------+ + + | | 2021-12-25 | [facility] | 48 | (missing) | (missing) | | (unavailable | 14:15 | | | | | | ) | | Hospital | | | | + + + +------+ + + + + | Result panel 116 | + + + + + +-------+ + + | | 2021-12-25 | [facility] | 114 | (missing) | (missing) | | (unavailable | 14:15 | | | | | | ) | | Hospital | | | | + + + +-------+ + + + + | Result panel 117 | + + + + + +-------+ + + | | 2021-12-25 | [facility] | 160 | (missing) | (missing) | | (unavailable | 14:15 | | | | | | ) | | Hospital | | | | + + + +-------+ + + + + | Result panel 118 | + + + + + +--------+ + + | | 2021-12-25 | [facility] | 14.0 | (missing) | (missing) | | (unavailable | 14:15 | | | | | | ) | | Hospital | | | | + + + +--------+ + + + + | Result panel 119 | + + + + + +--------+ + + | | 2021-12-25 | [facility] | 5.98 | (missing) | (missing) | | (unavailable | 14:15 | | | | | | ) | | Hospital | | | | + + + +--------+ + + + + | Result panel 120 | + + + + + +--------+ + + | | 2021-12-25 | [facility] | 16.9 | (missing) | (missing) | | (unavailable | 14:15 | | | | | | ) | | Hospital | | | | + + + +--------+ + + + + | Result panel 121 | + + + + + +--------+ + + | | 2021-12-25 | [facility] | 50.4 | (missing) | (missing) | | (unavailable | 14:15 | | | | | | ) | | Hospital | | | | + + + +--------+ + + + + | Result panel 122 | + + + + + +--------+ + + | | 2021-12-25 | [facility] | 84.3 | (missing) | (missing) | | (unavailable | 14:15 | | | | | | ) | | Hospital | | | | + + + +--------+ + + + + | Result panel 123 | + + + + + +--------+ + + | | 2021-12-25 | [facility] | 28.2 | (missing) | (missing) | | (unavailable | 14:15 | | | | | | ) | | Hospital | | | | + + + +--------+ + + + + | Result panel 124 | + + + + + +--------+ + + | | 2021-12-25 | [facility] | 33.4 | (missing) | (missing) | | (unavailable | 14:15 | | | | | | ) | | Hospital | | | | + + + +--------+ + + + + | Result panel 125 | + + + + + +--------+ + + | | 2021-12-25 | [facility] | 15.0 | (missing) | (missing) | | (unavailable | 14:15 | | | | | | ) | | Hospital | | | | + + + +--------+ + + + + | Result panel 126 | + + + + + +-------+ + + | | 2021-12-25 | [facility] | 348 | (missing) | (missing) | | (unavailable | 14:15 | | | | | | ) | | Hospital | | | | + + + +-------+ + + + + | Result panel 127 | + + + + + +--------+ + + | | 2021-12-25 | [facility] | 79.5 | (missing) | (missing) | | (unavailable | 14:15 | | | | | | ) | | Hospital | | | | + + + +--------+ + + + + | Result panel 128 | + + + + + +--------+ + + | | 2021-12-25 | [facility] | 13.9 | (missing) | (missing) | | (unavailable | 14:15 | | | | | | ) | | Hospital | | | | + + + +--------+ + + + + | Result panel 129 | + + + + + +-------+ + + | | 2021-12-25 | [facility] | 5.8 | (missing) | (missing) | | (unavailable | 14:15 | | | | | | ) | | Hospital | | | | + + + +-------+ + + + + | Result panel 130 | + + + + + +-------+ + + | | 2021-12-25 | [facility] | 0.3 | (missing) | (missing) | | (unavailable | 14:15 | | | | | | ) | | Hospital | | | | + + + +-------+ + + + + | Result panel 131 | + + + + + +-------+ + + | | 2021-12-25 | [facility] | 0.5 | (missing) | (missing) | | (unavailable | 14:15 | | | | | | ) | | Hospital | | | | + + + +-------+ + + + + | COMPREHENSIVE METABOLIC PANEL | + + + + + +--------+ + + | GLOBULIN | 2021-08-11 | [facility] | 2.2 | g/dl | (missing) | | | 15:25 [facility] | | | | + + + +--------+ + + | ALKALINE | 2021-08-11 | [facility] | 71 | U/L | (missing) | | PHOS | 15:25 | [facility] | | | | + + + +--------+ + + | ALT(SGPT) | 2021-08-11 | [facility] | 37 | U/L | (missing) | | | 15:25 | [facility] | | | | | | [facility] | | | | + + + +--------+ + + | ALBUMIN | 2021-08-11 | [facility] | 4.1 | g/dl | (missing) | | | 15:25 | [facility] | | | | | [facility] | | | | + + + +--------+ + + | A/G RATIO | 2021-08-11 | [facility] | 1.9 | (missing) | (missing) | | | 15:25 | [facility] | | | | | | [facility] | | | | + + + +--------+ + + | CALCIUM | 2021-08-11 | [facility] | 8.7 | mg/dL | (missing) | | | 15:25 | [facility] | | | | | | | [facility] | | | | + + + +--------+ + + | ANION GAP | 2021-08-11 | [facility] | 13.2 | (missing) | (missing) | | | 15:25 | [facility] | | | | | | | [facility] | | | | + + + +--------+ + + | AST(SGOT) | 2021-08-11 | [facility] | 25 | U/L | (missing) | | | 15:25 | [facility] | | | | | | [facility] | | | | + + + +--------+ + + | BILIRUBIN, | 2021-08-11 | [facility] | 0.4 | mg/dL | (missing) | | TOTAL | 15:25 | [facility] | | | | | | | [facility] | | | | + + + +--------+ + + | CARBON | 2021-08-11 | [facility] | 26 | meq/L | (missing) | | DIOXIDE | 15:25 | [facility] | | | | | | | [facility] | | | | + + + +--------+ + + | CHLORIDE | 2021-08-11 | [facility] | 109 | meq/L | (missing) | | | 15:25 | [facility] | | | | | | | [facility] | | | | + + + +--------+ + + | CREATININE, | 2021-08-11 | [facility] | 0.77 | mg/dL | (missing) | | SERUM | 15:25 | [facility] | | | | | | | [facility] | | | | + + + +--------+ + + | GLUCOSE | 2021-08-11 | [facility] | 90 | mg/dL | (missing) | | | 15:25 | [facility] | | | | | | | [facility] | | | | + + + +--------+ + + | POTASSIUM | 2021-08-11 | [facility] | 4.2 | meq/L | (missing) | | | 15:25 | [facility] | | | | | | | [facility] | | | | + + + +--------+ + + | PROTEIN | 2021-08-11 | [facility] | 6.3 | g/dL | (missing) | | | 15:25 | [facility] | | | | | | | [facility] | | | | + + + +--------+ + + | SODIUM | 2021-08-11 | [facility] | 144 | meq/L | (missing) | | | 15:25 | [facility] | | | | | | | [facility] | | | | + + + +--------+ + + | UREA | 2021-08-11 | [facility] | 13 | mg/dL | (missing) | | NITROGEN | 15:25 | [facility] | | | | | | | [facility] | | | | + + + +--------+ + + | | 2021-08-11 | [facility] | 16.9 | (missing) | (missing) | | BUN/CREAT.RA | 15:25 | MED[facility] | | | | | [facility] | | [facility] | | | | + + + +--------+ + + | GFR | 2021-08-11 | [facility] | 108 | ml/min | (missing) | | ESTIMATION | 15:25 | [facility] | | | | | | | [facility] | | | | + + + +--------+ + + + + | VITAMIN B12 | + + + + + +-------+---------+ + | VITAMIN B12 | 2021-08-11 | [facility] | 672 | pg/ml | (missing) | | | 15:25 | [facility] | | | | | | | [facility] | | | | + + + +-------+---------+ + + + | TSH w/FT4 Reflex | + + + + + +---------+ + + | TSH w/FT4 | 2021-08-11 | [facility] | 0.804 | uIU/ml | (missing) | | Reflex | 15:25 | [facility] | | | | | | | [facility] | | | | + + + +---------+ + + + + | VITAMIN D 25-OH | + + + + + +------+---------+ + | VITAMIN D | 2021-08-11 | [facility] | 35 | ng/mL | (missing) | | 25-OH | 15:25 | [facility] | | | | | | | [facility] | | | | + + + +------+---------+ + +-------+ | CBC | +-------+ + + + +--------+--------+ + | HEMOGLOBIN | 2021-08-11 | [facility] | 14.4 | g/dl | (missing) | | | 15:25 | [facility] | | | | | [facility] | | | | + + + +--------+--------+ + | RDW | 2021-08-11 | [facility] | 16.5 | % | (missing) | | | 15:25 | [facility] | | | | | | [facility] | | | | + + + +--------+--------+ + | HEMATOCRIT | 2021-08-11 | [facility] | 43.6 | % | (missing) | | | 15:25 | [facility] | | | | | | | [facility] | | | | + + + +--------+--------+ + | MONOCYTES | 2021-08-11 | [facility] | 6.2 | % | (missing) | | | 15:25 | [facility] | | | | | | | [facility] | | | | + + + +--------+--------+ + | WBC | 2021-08-11 | [facility] | 12.0 | K/ul | (missing) | | | 15:25 | [facility] | | | | | | | [facility] | | | | + + + +--------+--------+ + | BASOPHILS | 2021-08-11 | [facility] | 0.9 | % | (missing) | | | 15:25 | [facility] | | | | | | | [facility] | | | | + + + +--------+--------+ + | EOSINOPHILS | 2021-08-11 | [facility] | 1.9 | % | (missing) | | | 15:25 | [facility] | | | | | | | [facility] | | | | + + + +--------+--------+ + | LYMPHOCYTES | 2021-08-11 | [facility] | 33.2 | % | (missing) | | | 15:25 | [facility] | | | | | | | [facility] | | | | + + + +--------+--------+ + | NEUTROPHILS | 2021-08-11 | [facility] | 57.8 | % | (missing) | | | 15:25 | [facility] | | | | | | [facility] | | | | + + + +--------+--------+ + | PLATELET | 2021-08-11 | [facility] | 292 | K/ul | (missing) | | COUNT | 15:25 | [facility] | | | | | | | [facility] | | | | + + + +--------+--------+ + | MCH | 2021-08-11 | [facility] | 28 | pg | (missing) | | | 15:25 | [facility] | | | | | | | [facility] | | | | + + + +--------+--------+ + | MCHC | 2021-08-11 | [facility] | 33 | g/dL | (missing) | | | 15:25 | [facility] | | | | | | | [facility] | | | | + + + +--------+--------+ + | MCV | 2021-08-11 | [facility] | 86.0 | fl | (missing) | | | 15:25 | [facility] | | | | | | | [facility] | | | | + + + +--------+--------+ + | RBC | 2021-08-11 | [facility] | 5.07 | M/ul | (missing) | | | 15:25 | [facility] | | | | | | | [facility] | | | | + + + +--------+--------+ + Social History + + + + | date | description | facility | + + + + | 2021-07-14 00:00 | Unknown if ever smoked | [facility] | | | | | + + + + | 2021-09-21 00:00 | Unknown if ever smoked | [facility] | | | | | + + + + | 2022-06-15 00:00 | Unknown if ever smoked | [facility] | | | | | + + + + Vital Signs + + + + + | date | measurement | value | units | + + + + + | 2021-06-08 00:00 | BMI | 42.6 | kg/m2 | + + + + + | 2021-06-08 00:00 | height_metric | 172.72 | cm | + + + + + | 2021-06-08 00:00 | height_standard | 68 | in | + + + + + | 2021-06-08 00:00 | weight_metric | 127.01 | kg | + + + + + | 2021-06-08 00:00 | weight_standard | 280 | lb | + + + + + | 2021-06-08 00:00 | weight_standard | 280.01 | lb | + + + + + | 2021-06-09 00:00 | BP_diastolic | 88 | mmHg | + + + + + | 2021-06-09 00:00 | BP_systolic | 120 | mmHg | + + + + + | 2021-06-09 00:00 | heart_rate | 67 | /min | + + + + + | 2021-06-09 00:00 | o2_saturation | 98 | % | + + + + + | 2021-06-09 00:00 | respiration_rate | 15 | /min | + + + + + | 2021-06-09 00:00 | temperature_metric | 36.17 | C | | | | | | + + + + + | 2021-06-09 00:00 | | 97.1 | F | | | temperature_standar | | | | | d | | | + + + + + | 2021-07-12 00:00 | BMI | 41.0 | kg/m2 | + + + + + | 2021-07-12 00:00 | BP_diastolic | 82 | mmHg | + + + + + | 2021-07-12 00:00 | BP_systolic | 138 | mmHg | + + + + + | 2021-07-12 00:00 | BSA | 2.37 | m2 | + + + + + | 2021-07-12 00:00 | BSA | 2.4 | m2 | + + + + + | 2021-07-12 00:00 | heart_rate | 1|1| | completed | + + + + + | 2021-07-12 00:00 | heart_rate | 81 | /min | + + + + + | 2021-07-12 00:00 | height_metric | 175.26 | cm | + + + + + | 2021-07-12 00:00 | height_standard | 69 | in | + + + + + | 2021-07-12 00:00 | o2_saturation | 98 | % | + + + + + | 2021-07-12 00:00 | temperature_metric | 36.28 | C | | | | | | + + + + + | 2021-07-12 00:00 | | 97.3 | F | | | temperature_standar | | | | | d | | | + + + + + | 2021-07-12 00:00 | weight_metric | 125.87 | kg | + + + + + | 2021-07-12 00:00 | weight_standard | 277.5 | lb | + + + + + | 2021-08-11 00:00 | BMI | 41.7 | kg/m2 | + + + + + | 2021-08-11 00:00 | BP_diastolic | 86 | mmHg | + + + + + | 2021-08-11 00:00 | BP_systolic | 132 | mmHg | + + + + + | 2021-08-11 00:00 | BSA | 2.39 | m2 | + + + + + | 2021-08-11 00:00 | BSA | 2.4 | m2 | + + + + + | 2021-08-11 00:00 | heart_rate | 1|1| | completed | + + + + + | 2021-08-11 00:00 | heart_rate | 86 | /min | + + + + + | 2021-08-11 00:00 | height_metric | 175.26 | cm | + + + + + | 2021-08-11 00:00 | height_standard | 69 | in | + + + + + | 2021-08-11 00:00 | o2_saturation | 97 | % | + + + + + | 2021-08-11 00:00 | temperature_metric | 36.72 | C | | | | | | + + + + + | 2021-08-11 00:00 | | 98.1 | F | | | temperature_standar | | | | | d | | | + + + + + | 2021-08-11 00:00 | weight_metric | 128.03 | kg | + + + + + | 2021-08-11 00:00 | weight_standard | 282.25 | lb | + + + + + | 2021-09-20 00:00 | BMI | 41.8 | kg/m2 | + + + + + | 2021-09-20 00:00 | BP_diastolic | 88 | mmHg | + + + + + | 2021-09-20 00:00 | BP_systolic | 128 | mmHg | + + + + + | 2021-09-20 00:00 | BSA | 2.4 | m2 | + + + + + | 2021-09-20 00:00 | BSA | 2.40 | m2 | + + + + + | 2021-09-20 00:00 | heart_rate | 1|1| | completed | + + + + + | 2021-09-20 00:00 | heart_rate | 76 | /min | + + + + + | 2021-09-20 00:00 | height_metric | 175.26 | cm | + + + + + | 2021-09-20 00:00 | height_standard | 69 | in | + + + + + | 2021-09-20 00:00 | o2_saturation | 97 | % | + + + + + | 2021-09-20 00:00 | temperature_metric | 36.22 | C | | | | | | + + + + + | 2021-09-20 00:00 | | 97.2 | F | | | temperature_standar | | | | | d | | | + + + + + | 2021-09-20 00:00 | weight_metric | 128.54 | kg | + + + + + | 2021-09-20 00:00 | weight_standard | 283.38 | lb | + + + + + | 2021-11-04 00:00 | BMI | 43.2 | kg/m2 | + + + + + | 2021-11-04 00:00 | BP_diastolic | 103 | mmHg | + + + + + | 2021-11-04 00:00 | BP_systolic | 132 | mmHg | + + + + + | 2021-11-04 00:00 | heart_rate | 85 | /min | + + + + + | 2021-11-04 00:00 | height_metric | 172.72 | cm | + + + + + | 2021-11-04 00:00 | height_standard | 68 | in | + + + + + | 2021-11-04 00:00 | o2_saturation | 97 | % | + + + + + | 2021-11-04 00:00 | respiration_rate | 18 | /min | + + + + + | 2021-11-04 00:00 | temperature_metric | 36.94 | C | | | | | | + + + + + | 2021-11-04 00:00 | | 98.5 | F | | | temperature_standar | | | | | d | | | + + + + + | 2021-11-04 00:00 | weight_metric | 128.79 | kg | + + + + + | 2021-11-04 00:00 | weight_standard | 283.93 | lb | + + + + + | 2021-11-04 00:00 | weight_standard | 283.94 | lb | + + + + + | 2021-12-25 00:00 | BMI | 41.2 | kg/m2 | + + + + + | 2021-12-25 00:00 | BP_diastolic | 97 | mmHg | + + + + + | 2021-12-25 00:00 | BP_systolic | 130 | mmHg | + + + + + | 2021-12-25 00:00 | heart_rate | 93 | /min | + + + + + | 2021-12-25 00:00 | height_metric | 172.72 | cm | + + + + + | 2021-12-25 00:00 | height_standard | 68 | in | + + + + + | 2021-12-25 00:00 | o2_saturation | 96 | % | + + + + + | 2021-12-25 00:00 | respiration_rate | 19 | /min | + + + + + | 2021-12-25 00:00 | temperature_metric | 36.94 | C | | | | | | + + + + + | 2021-12-25 00:00 | | 98.5 | F | | | temperature_standar | | | | | d | | | + + + + + | 2021-12-25 00:00 | weight_metric | 123 | kg | + + + + + | 2021-12-25 00:00 | weight_standard | 271.17 | lb | + + + + + | 2022-06-13 00:00 | BMI | 42 | 1 | + + + + + | 2022-06-13 00:00 | BP_diastolic | 78 | mmHg | + + + + + | 2022-06-13 00:00 | BP_systolic | 116 | mmHg | + + + + + | 2022-06-13 00:00 | BSA | 2.4 | 1 | + + + + + | 2022-06-13 00:00 | heart_rate | 1|1| | completed | + + + + + | 2022-06-13 00:00 | heart_rate | 85 | /min | + + + + + | 2022-06-13 00:00 | height_metric | 175.26 | cm | + + + + + | 2022-06-13 00:00 | height_standard | 69 | in | + + + + + | 2022-06-13 00:00 | o2_saturation | 97 | % | + + + + + | 2022-06-13 00:00 | temperature_metric | 36.5 | C | | | | | | + + + + + | 2022-06-13 00:00 | | 97.7 | F | | | temperature_standar | | | | | d | | | + + + + + | 2022-06-13 00:00 | weight_metric | 128.88 | kg | + + + + + | 2022-06-13 00:00 | weight_standard | 284.13 | lb | + + + + + | 2022-08-16 00:00 | BMI | 42.9 | kg/m2 | + + + + + | 2022-08-16 00:00 | BP_diastolic | 80 | mmHg | + + + + + | 2022-08-16 00:00 | BP_systolic | 130 | mmHg | + + + + + | 2022-08-16 00:00 | heart_rate | 82 | /min | + + + + + | 2022-08-16 00:00 | height_metric | 172.72 | cm | + + + + + | 2022-08-16 00:00 | height_standard | 68 | in | + + + + + | 2022-08-16 00:00 | o2_saturation | 100 | % | + + + + + | 2022-08-16 00:00 | respiration_rate | 16 | /min | + + + + + | 2022-08-16 00:00 | temperature_metric | 36.56 | C | | | | | | + + + + + | 2022-08-16 00:00 | | 97.8 | F | | | temperature_standar | | | | | d | | | + + + + + | 2022-08-16 00:00 | weight_metric | 128 | kg | + + + + + | 2022-08-16 00:00 | weight_standard | 282.19 | lb | + + + + + | 2022-08-17 00:00 | BMI | 42.4 | kg/m2 | + + + + + | 2022-08-17 00:00 | BP_diastolic | 70 | mmHg | + + + + + | 2022-08-17 00:00 | BP_systolic | 138 | mmHg | + + + + + | 2022-08-17 00:00 | heart_rate | 86 | /min | + + + + + | 2022-08-17 00:00 | height_metric | 172.72 | cm | + + + + + | 2022-08-17 00:00 | height_standard | 68 | in | + + + + + | 2022-08-17 00:00 | o2_saturation | 99 | % | + + + + + | 2022-08-17 00:00 | respiration_rate | 16 | /min | + + + + + | 2022-08-17 00:00 | temperature_metric | 36.67 | C | | | | | | + + + + + | 2022-08-17 00:00 | | 98 | F | | | temperature_standar | | | | | d | | | + + + + + | 2022-08-17 00:00 | weight_metric | 126.55 | kg | + + + + + | 2022-08-17 00:00 | weight_standard | 278.99 | lb | + + + + + | 2022-08-17 00:00 | weight_standard | 279 | lb | + + + + +"
--- OUTSIDE RECORDS SUMMARY | ~2022-11-15 | XMS | Continuity of Care Document ---
Demographics + + + | Address | [address] | | | [place] [address] | + + + | Preferred Language | Unknown | + + + | Marital Status | Never | + + + | Christianity Affiliation | Unknown | + + + | Race | White | + + + | Ethnic Group | Not or | + + + Author + + + | Author | [facility] | + + + | Organization | [facility] | + + + | Address | [address] | | | [place] [address] | + + + | Phone | | + + + Care Team Providers + + + + | Care Fish And Wildlife Biologist Name | Role | Phone | + [...] 2021-09-18 00:00 | DIPHENHYDRAMINE HCL | [facility] | + + + + | 2021-11-04 00:00 | DIPHENHYDRAMINE HCL | [facility] | + + + + | 2021-12-25 00:00 | DIPHENHYDRAMINE HCL | [facility] | + + + + | 2022-08-16 00:00 | DIPHENHYDRAMINE HCL | [facility] | + + + + | 2022-08-17 00:00 | DIPHENHYDRAMINE HCL | [facility] | + + + + | 2021-07-12 00:00 | divalproex sodium 125 MG | [facility] | | | Delayed Release Oral Tablet | | | | | | + + + + | 2021-09-18 00:00 | MOMETASONE/FORMOTEROL | [facility] | + + + + | 2021-11-04 00:00 | MOMETASONE/FORMOTEROL | [facility] | + + + + | 2021-12-25 00:00 | MOMETASONE/FORMOTEROL | [facility] | + + + + | 2022-08-16 00:00 | MOMETASONE/FORMOTEROL | [facility] | + + + + | 2022-08-17 00:00 | MOMETASONE/FORMOTEROL | [facility] | + + + + | 2021-07-12 00:00 | Fluticasone Furoate 27.5 | [facility] | | | MCG/SPRAY Nasal Suspension | | + + + + | 2021-12-25 00:00 | Fluticasone | [facility] | | | Propion/Salmeterol | | + + + + | 2022-08-16 00:00 | Fluticasone | [facility] | | | Propion/Salmeterol | | + + + + | 2022-08-17 00:00 | Fluticasone | [facility] | | | Propion/Salmeterol | | + + + + | 2021-09-18 00:00 | ALBUTEROL SULFATE | [facility] | + + + + | 2021-11-04 00:00 | ALBUTEROL SULFATE | [facility] | + + + + | 2021-12-25 00:00 | ALBUTEROL SULFATE | [facility] | + + + + | 2022-08-16 00:00 | ALBUTEROL SULFATE | [facility] | + + + + | 2022-08-17 00:00 | ALBUTEROL SULFATE | [facility] | + + + + | 2021-07-12 00:00 | montelukast 10 MG Oral | [facility] | | | Tablet [Singulair] | | + + + + | 2021-07-12 00:00 | Propranolol HCl 20 MG Oral | [facility] | | | Tablet | | + + + + | 2021-08-11 00:00 | Propranolol HCl 20 MG Oral | [facility] | | | Tablet | | + + + + | 2021-07-12 00:00 | fluticasone furoate 0.0275 | [facility] | | | MG/ACTUAT Metered Dose | | | | Nasal [place] | | + + + + | 2021-09-18 00:00 | TRIAMCINOLONE ACETONIDE | [facility] | + + + + | 2021-11-04 00:00 | TRIAMCINOLONE ACETONIDE | [facility] | + + + + | 2021-12-25 00:00 | TRIAMCINOLONE ACETONIDE | [facility] | + + + + | 2022-08-16 00:00 | TRIAMCINOLONE ACETONIDE | [facility] | + + + + | 2022-08-17 00:00 | TRIAMCINOLONE ACETONIDE | [facility] | + + + + | 2022-06-13 00:00 | alprazolam 1 MG Oral | [facility] | | | Tablet | | + + + + | 2021-09-18 00:00 | MONTELUKAST SODIUM | [facility] | + + + + | 2021-11-04 00:00 | MONTELUKAST SODIUM | [facility] | + + + + | 2021-12-25 00:00 | MONTELUKAST SODIUM | [facility] | + + + + | 2022-08-16 00:00 | MONTELUKAST SODIUM | [facility] | + + + + | 2022-08-17 00:00 | MONTELUKAST SODIUM | [facility] | + + + + | 2021-07-12 [...] 2021-09-18 00:00 | OMEPRAZOLE MAGNESIUM | [facility] | + + + + | 2021-11-04 00:00 | OMEPRAZOLE MAGNESIUM | [facility] | + + + + | 2021-12-25 00:00 | OMEPRAZOLE MAGNESIUM | [facility] | + + + + | 2022-08-16 00:00 | OMEPRAZOLE MAGNESIUM | [facility] | + + + + | 2022-08-17 00:00 | OMEPRAZOLE MAGNESIUM | [facility] | + + + + | 2021-07-12 [...] + | 2022-08-16 00:00 | | [facility] | | | SULFAMETHOXAZOLE/TRIMETHOPR | | | | IM DS | | + + + + | 2022-08-16 00:00 | | [facility] | | | SULFAMETHOXAZOLE/TRIMETHOPR | | | | IM DS | | + + + + | 2021-07-12 00:00 | propranolol hydrochloride | [facility] | | | 20 MG Oral Tablet | | + + + + | 2021-08-11 00:00 | propranolol hydrochloride | [facility] | | | 20 MG Oral Tablet | | + + + + | 2021-06-09 00:00 | HYDROCODONE | [facility] | | | BIT/ACETAMINOPHEN | | + + + + | 2021-06-09 00:00 | HYDROCODONE | [facility] | | | BIT/ACETAMINOPHEN | | + + + + | 2014-05-30 00:00 | HYDROCODONE | [facility] | | | BIT/ACETAMINOPHEN | | + + + + | 2014-05-30 00:00 | HYDROCODONE | [facility] | | | BIT/ACETAMINOPHEN | | + + + + | 2014-05-30 00:00 | HYDROCODONE | [facility] | | | BIT/ACETAMINOPHEN | | + + + + | 2022-08-17 00:00 | HYDROCODONE | [facility] | | | BIT/ACETAMINOPHEN | | + + + + | 2021-07-12 00:00 | [facility]one hydrochloride 5 | [facility] | | | MG Oral Tablet | | + + + + | 2014-05-30 00:00 | ONDANSETRON | [facility] | + + + + | 2014-05-30 00:00 | ONDANSETRON | [facility] | + + + + | 2014-05-30 00:00 | ONDANSETRON | [facility] | + + + + | 2021-07-12 00:00 | 60 ACTUAT fluticasone | [facility] | | | propionate 0.1 MG/ACTUAT / | | | | salmeterol 0.05 MG/ACTUAT | | | | Dry Powder Inhaler [Advair] | | + + + + | 2022-06-13 00:00 | ALPRAZolam 1 MG Oral | [facility] | | | Tablet | | + + + + | 2021-07-12 00:00 | Omeprazole Oral Tablet | [facility] | | | | | + + + + | 2021-07-12 00:00 | Albuterol 90 mcg | [facility] | | | Inhalation Inhaler | | + + + + Problems + + + + | date | description | facility | + + + + | 2014-05-30 00:00 | Dehydration | [facility] | + + + + | 2014-05-30 00:00 | Dehydration | [facility] | + + + + | 2014-05-30 00:00 | Dehydration | [facility] | + + + + | 2014-05-30 00:00 | Vomiting and diarrhea | [facility] | + + + + | 2014-05-30 00:00 | Vomiting and diarrhea | [facility] | + + + + | 2014-05-30 00:00 | Vomiting and diarrhea | [facility] | + + + + | 2014-05-30 00:00 | Weakness | [facility] | + + + + | 2014-05-30 00:00 | Weakness | [facility] | + + + + | 2014-05-30 00:00 | Weakness | [facility] | + + + + | 2016-05-28 00:00 | Patient left without being | [facility] | | | seen | | + + + + | 2016-05-28 00:00 | Patient left without being | [facility] | | | seen | | + + + + | 2016-05-28 00:00 | Patient left without being | [facility] | | | seen | | + + + + | 2020-04-03 00:00 | Alcoholic intoxication | [facility] | + + + + | 2020-04-03 00:00 | Alcoholic intoxication | [facility] | + + + + | 2020-04-03 00:00 | Alcoholic intoxication | [facility] | + + + + | 2020-04-03 00:00 | Suicidal ideation | [facility] | + + + + | 2020-04-03 00:00 | Suicidal ideation | [facility] | + + + + | 2020-04-03 00:00 | Suicidal ideation | [facility] | + + + + | 2021-06-09 00:00 | Contusion of right chest | [facility] | | | wall | | + + + + | 2021-06-09 00:00 | Contusion of right chest | [facility] | | | wall | | + + + + | 2021-06-09 00:00 | Contusion of right chest | [facility] | | | wall | | + + + + | 2021-11-04 00:00 | Intentional overdose | [facility] | + + + + | 2021-11-04 00:00 | Intentional overdose | [facility] | + + + + | 2021-12-25 00:00 | Flushing | [facility] | + + + + | 2021-12-25 00:00 | Flushing | [facility] | + + + + | 2021-12-25 00:00 | Excessive sweating | [facility] | + + + + | 2021-12-25 00:00 | Excessive sweating | [facility] | + + + + | 2022-08-16 00:00 | Abscess of left thigh | [facility] | + + + + | 2022-08-16 00:00 | Abscess of left thigh | [facility] | + + + + [...] + + | 2022-08-16 14:43 | 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
[~2022-11-15 15:50] MED LIST changes: +BACTRIM DS TAB1 EACH PO; +FLUTICASONE-SA1 EAC3 INH; +HYDROCODON-ACE1 EA11 PO
--- OUTSIDE RECORDS SUMMARY | 2022-11-15 15:53 | XMS ---
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 Rebekah VISIT COUNT (12 MO.) Kristin [place] TOTAL 4 NOTE: Visits indicate total known visits. ED/UCC VISIT TRACKING (12 MO.) 11/15/2022 15:50 [facility] TYPE: Emergency COMPLAINT: - VOMITING 08/17/2022 13:08 [facility] TYPE: Emergency COMPLAINT: - MEDICATION REFILL DIAGNOSES: - Allergy status to narcotic agent - Chronic obstructive pulmonary disease, unspecified - Cutaneous abscess of left lower limb - Cutaneous abscess, unspecified - Gastro-esophageal reflux disease without esophagitis - Nicotine dependence, unspecified, uncomplicated - Other intermediate (current) drug therapy 08/16/2022 14:43 [facility] TYPE: Emergency COMPLAINT: - SKIN PROBLEM DIAGNOSES: - Chronic obstructive pulmonary disease, unspecified - Cutaneous abscess of left lower limb - Gastro-esophageal reflux disease without esophagitis - Nicotine dependence, cigarettes, uncomplicated - Other superintendent terminal (current) drug therapy 12/25/2021 14:01 [facility] TYPE: Emergency COMPLAINT: - RIB PAIN,SKIN PROBLEM DIAGNOSES: - Allergy status to narcotic agent - Chronic obstructive pulmonary disease, unspecified - Flushing - Gastro-esophageal reflux disease without esophagitis - Generalized hyperhidrosis - Generalized hyperhidrosis - Nicotine dependence, unspecified, uncomplicated - Other intermediate (current) drug therapy - Post-traumatic stress disorder, unspecified - Upper abdominal pain, unspecified INPATIENT VISIT TRACKING (12 MO.) No inpatient visits to display in this time frame [email or web address]
[2022-11-15 18:05] LABS: INFLUENZA B NAA NEGATIVE (NEGATIVE); RESPIRATORY SYNCYTIAL VIR NAA NEGATIVE (NEGATIVE)
[2022-11-15 19:19] VITALS: BP 133/82
== END 2022-11-15 19:20 | disposition other institution, planned readmission (95) ==
LOC: ED 15:50
PROVIDERS: Emergency Medicine
DX: R11.10 Vomiting, unspecified (principal); R06.00 Dyspnea, unspecified; M54.50 Low back pain, unspecified; Z53.21 Procedure and treatment not carried out due to patient leaving prior to being seen by health care provider
CPT/HCPCS: 87502; U0002

== ENCOUNTER 2024-05-10 14:22 | Emergency (ER) | payer MEDICARE, OTHER ==
[~2024-05-10] VITALS: Ht 172.7 cm; Wt 86.6 kg
[2024-05-10 14:44] LABS: BASOPHILS 0.6 % (0-2); EOSINOPHILS 0.5 % (0-6); HEMATOCRIT 49.3 % (35.0-50.0); HEMOGLOBIN 17.2 g/dL (12.0-18.0); LYMPHOCYTES 26.3 % (24-44); MCH 32.4 (27-36); MCHC 34.9 g/dl (30-36); MCV 92.9 fl (81-99); MONOCYTES 8.3 % (0-12); NEUTROPHILS 64.3 % (39-80); PLATELET COUNT 232 K/uL (140-440); RDW 14.3 (10.5-15.0)
[2024-05-10] MEDS ORDERED: BREO ELLIPTA 21 EACH IH (14:44)
[2024-05-10] MEDS ORDERED: SODIUM CHLORIDE 0.9% 1,000 ML IV ONE (14:45)
[2024-05-10] MEDS ORDERED: LORazepam 2 MG/ML VIAL IV ONE (14:45)
[2024-05-10 15:05] LABS: ALBUMIN/GLOBULIN RATIO 1.18 (1.1-2.4); ANION GAP 14.9 (7-21); BILIRUBIN, TOTAL 1.2 mg/dL (0.2-1.0); BUN/CREATININE RATIO 5.3 (6.0-28.6); CALCIUM 9.5 mg/dL (8.5-10.1); CREATININE, SERUM 1.13 mg/dL (0.70-1.30); POTASSIUM 3.9 mmol/L (3.5-5.1); PROTEIN, TOTAL 7.4 g/dL (6.4-8.2)
[2024-05-10 15:24] LABS: AMPHETAMINES, URINE POSITIVE (NEGATIVE); BARBITURATES, URINE NEGATIVE (NEGATIVE); BENZODIAZEPINE, URINE NEGATIVE (NEGATIVE); BUPRENORPHINE, URINE NEGATIVE (NEGATIVE); CANNABINOID, URINE NEGATIVE (NEGATIVE); COCAINE, URINE NEGATIVE (NEGATIVE); ECSTASY, URINE NEGATIVE (NEGATIVE); FENTANYL, URINE NEGATIVE (NEGATIVE); METHADONE, URINE NEGATIVE (NEGATIVE); OPIATES, URINE NEGATIVE (NEGATIVE); OXYCODONE, URINE NEGATIVE (NEGATIVE); PHENCYCLIDINE, URINE NEGATIVE (NEGATIVE)
[2024-05-10 15:33] VITALS: BP 168/109
--- NOTE | 2024-05-11 21:33 | EKG ---
[facility] [address] [place], [place] [address] Signed Normal sinus rhythm Left axis deviation Inferior infarct (cited on or before 25-DEC-2021) Abnormal ECG When compared with ECG of 25-DEC-2021 14:17, No significant change was found Confirmed by Di Chery DO ([id number]) on 05/11/2024 9:33:04 PM Electronically Signed By: DI CHERY DO 05/11/24 2133 PATIENT NAME: HAN MIX Electrocardiogram DATE OF : 73 PHYSICIAN: DI CHERY DO REPORT #: [id number] REPORT IS CONFIDENTIAL AND NOT TO BE RELEASED WITHOUT AUTHORIZATION
== END 2024-05-10 15:33 | disposition other institution, planned readmission (95) ==
LOC: ED 14:22
PROVIDERS: Emergency Medicine
DX: F15.90 Other stimulant use, unspecified, uncomplicated (principal); R44.3 Hallucinations, unspecified; J44.89 Other specified chronic obstructive pulmonary disease; K21.9 Gastro-esophageal reflux disease without esophagitis; F17.200 Nicotine dependence, unspecified, uncomplicated; Z53.29 Procedure and treatment not carried out because of patient's decision for other reasons; Z88.5 Allergy status to narcotic agent; Z79.899 Other long term (current) drug therapy
CPT/HCPCS: 36415; 80053; 80307; 83880; 84484; 85025; 93005; 93010; 96374; 99284-25; J2060; J7030